=== PATIENT | male | born 1995 | race Caucasian/White ===

== ENCOUNTER 2016-07-16 01:37 | Emergency (ER) | payer OTHER ==
[2016-07-16 01:45] VITALS: O2SAT 94
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
[2016-07-16] MEDS ORDERED: HYDROCOD/APAP 5/325 PREPACK#6 BTL TAKEHOME ONE (02:58)
[2016-07-16 04:34] VITALS: BP 135/85; PULSE 78; RESP 14; TEMP 98.4
--- NOTE | 2016-07-16 09:13 | DX ---
Right Hand, Three Views History: Hand pain and deformity after punching wall. Findings: There is an oblique fracture in the distal metadiaphysis of the right fifth metacarpal. The re is palmar angulation of the metacarpal head in relation to the diaphyseal shaft and mild radial si ded angulation. The palmar angulation is approximately 45 degrees. No evidence for fracture extending intraarticular. Normal underlying mineralization. Associated soft tissue swelling. Impression: Angulated fifth metacarpal fracture, as above.
--- NOTE | 2016-07-16 09:15 | DX ---
Right Hand, Three Views History: Post splinting and reduction. Comparison: X-rays performed earlier today. Findings: There has been slight reduction of the palmar angulation of the right fifth metacarpal frac ture. This has been fixated with split material. No other significant interval change. Impression: Mild reduction of the volar angulation of the right fifth metacarpal fracture.
== END 2016-07-16 03:32 | disposition home or self-care (01) ==
PROC: 0PSPXZZ Reposition Right Metacarpal, External Approach (ICD-10-PCS; principal; 2016-07-16)
DX: S62.336A Displaced fracture of neck of fifth metacarpal bone, right hand, initial encounter for closed fracture (principal); J45.909 Unspecified asthma, uncomplicated; F17.200 Nicotine dependence, unspecified, uncomplicated; Y04.0XXA Assault by unarmed brawl or fight, initial encounter; Y92.89 Other specified places as the place of occurrence of the external cause; Y93.89 Activity, other specified